=== PATIENT | male | born 1950 | race Caucasian/White ===

== ENCOUNTER 2017-04-12 10:38 | Emergency (ER) | payer OTHER ==
[~2017-04-12] VITALS: Ht 162.6 cm; Wt 67.8 kg
[~2017-04-12 10:38] MED LIST: ASPIRIN325 MG PO; ATORVASTATIN CA20 MG PO; LISINOPRIL20 MG PO; METFORMIN HCL1000 MG PO; PLAVIX75 MG PO; VITAMIN D35000 UNI1 PO
[2017-04-12 12:40] LABS: HEMATOCRIT 44.5 % (38.0-50.0); MCHC 35.3 G/DL (30.0-36.0); MCV 85.1 FL (86-99); MEAN PLAT.VOLUME 10.4 uM^3 (9.0-12.4); PLATELET COUNT 250 K/uL (156-360); RBC DIS.WIDTH-SD 37.2 % (39-53); RED BLOOD COUNT 5.23 M/uL (4.00-5.50); WHITE BLOOD COUNT 8.7 K/uL (4.1-10.2)
[2017-04-12 13:02] LABS: CHLORIDE 98 mEq/L (99-109); POTASSIUM 3.8 mEq/L (3.7-5.4); SODIUM 133 mEq/L (136-147)
[2017-04-12 13:04] LABS: GLUCOSE 231 mg/dL (70-99)
[2017-04-12 13:05] LABS: ANION GAP 11 MEQ/L (2-14)
[2017-04-12 13:06] LABS: TOTAL BILIRUBIN 0.7 mg/dL (0.0-1.0)
[2017-04-12 13:08] LABS: ALKALINE PHOSPHATASE 60 IU/L (3-129); GFR ESTIMATE (CALCULATED) > 59 mL/min/
[2017-04-12 13:09] LABS: UREA NITROGEN (BUN) 23 mg/dL (9-23)
[2017-04-12 13:11] LABS: LIPASE 28 U/L (1.0-51.0)
[2017-04-12 15:44] VITALS: BP 116/79
== END 2017-04-12 15:45 | disposition home or self-care (01) ==
LOC: EME 10:38
DX: K59.00 Constipation, unspecified (principal); I10 Essential (primary) hypertension; E78.5 Hyperlipidemia, unspecified; E11.9 Type 2 diabetes mellitus without complications; Z79.82 Long term (current) use of aspirin; Z79.02 Long term (current) use of antithrombotics/antiplatelets
CPT/HCPCS: 74020; 74177; 80053; 81003; 83605; 83690; 85027; 99281; 99284; J7040

== ENCOUNTER 2017-04-24 11:41 | Inpatient (IN) | payer OTHER ==
[~2017-04-24] VITALS: Ht 165.1 cm; Wt 63.2 kg
[~2017-04-24 11:41] MED LIST changes: -ASPIRIN325 MG PO; -ATORVASTATIN CA20 MG PO; +ATORVASTATIN CA40 MG PO; +ERGOCALCIF50000 UNIT PO; +LISINOPRIL-HCT1 EAC3 PO; -LISINOPRIL20 MG PO; +LO-DOSE ASPIRIN81 M1 PO; -VITAMIN D35000 UNI1 PO
[2017-04-24 13:32] LABS: HEMATOCRIT 48.3 % (38.0-50.0); MCH 29.9 PG (29.0-34.0); MCHC 34.8 G/DL (30.0-36.0); MCV 86.1 FL (86-99); MEAN PLAT.VOLUME 10.3 uM^3 (9.0-12.4); PLATELET COUNT 281 K/uL (156-360); RBC DIS.WIDTH-SD 37.8 % (39-53); RED BLOOD COUNT 5.61 M/uL (4.00-5.50); WHITE BLOOD COUNT 8.2 K/uL (4.1-10.2)
[2017-04-24 13:42] LABS: CHLORIDE 91 mEq/L (99-109); POTASSIUM 3.7 mEq/L (3.7-5.4); SODIUM 134 mEq/L (136-147)
[2017-04-24 13:43] LABS: GLUCOSE 236 mg/dL (70-99)
[2017-04-24 13:45] LABS: ANION GAP 13 MEQ/L (2-14)
[2017-04-24 13:47] LABS: GFR ESTIMATE (CALCULATED) > 59 mL/min/
[2017-04-24 13:48] LABS: UREA NITROGEN (BUN) 22 mg/dL (9-23)
[2017-04-24] MEDS ORDERED: GLIPIZIDE5 MG PO (14:07)
[2017-04-24] MEDS ORDERED: ONGLYZA5 MG PO (14:08)
[2017-04-24] MEDS ORDERED: SIMETHICONE80 MG PO (14:09)
[2017-04-24] MEDS ORDERED: ACIDOPHILUS1 EAC1 PO (14:09)
[2017-04-24] MEDS ORDERED: COLACE100 MG PO (14:10)
[2017-04-24] MEDS ORDERED: MAGNESIUM CITR296 M1 PO (14:10)
[2017-04-24] MEDS ORDERED: PSYLLIUM SEED480 GM PO (14:11)
[2017-04-24 14:12] LABS: TROP-I INTERPRETATION NEGATIVE; TROPONIN-I < 0.01 ng/mL (0.0-0.30)
[2017-04-24 18:32] VITALS: BP 152/76
[2017-04-24 20:00] VITALS: BP 122/67
[2017-04-24 23:15] LABS: POINT-OF-CARE METER ID UU14188625
[2017-04-24 23:46] VITALS: BP 139/84
[2017-04-25 04:05] VITALS: BP 140/70
[2017-04-25 06:18] LABS: ANION GAP 5 MEQ/L (2-14); CHLORIDE 98 MEQ/L (99-109); GFR ESTIMATE (CALCULATED) > 59 mL/min/; GLUCOSE 298 mg/dL (70-99); POTASSIUM 3.9 MEQ/L (3.7-5.4); SAMPLE HEMOLYSIS CHECK 0; SAMPLE ICTERIC CHECK 0; SAMPLE LIPEMIA CHECK 0; SODIUM 133 MEQ/L (136-147); UREA NITROGEN (BUN) 23 mg/dL (9-23)
[2017-04-25 07:25] VITALS: BP 155/74
[2017-04-25 08:20] LABS: BASOPHIL COUNT 0.1 K/uL (0-0.1); EOSINOPHIL (%) 0.4 % (0-5); HEMATOCRIT 41.9 % (38.0-50.0); IMMATURE GRANULOCYTE (%) 0.4 % (0.0-0.7); LYMPHOCYTE COUNT 0.7 K/uL (1.0-2.8); MCH 29.8 PG (29.0-34.0); MCHC 34.4 G/DL (30.0-36.0); MCV 86.6 FL (86-99); MEAN PLAT.VOLUME 10.5 uM^3 (9.0-12.4); MONOCYTE COUNT 0.5 K/uL (0-0.8); NEUTROPHIL (%) 84.1 % (45-76); PLATELET COUNT 264 K/uL (156-360); RBC DIS.WIDTH-CV 12.1 % (11.8-14.6); RBC DIS.WIDTH-SD 38.8 % (39-53); RED BLOOD COUNT 4.84 M/uL (4.00-5.50); WHITE BLOOD COUNT 8.3 K/uL (4.1-10.2)
[2017-04-25 08:24] LABS: ALKALINE PHOSPHATASE 57 IU/L (3-129); DIRECT BILIRUBIN 0.1 mg/dL (0.0-0.3); TOTAL BILIRUBIN 0.5 MG/DL (0.0-1.0)
[2017-04-25 10:04] LABS: Estimated Average Glucose 226 mg/dL (70-123); HEMOGLOBIN A1c (GLYCOHEMOGLOB) 9.5 % HGB (Below 5.7)
[2017-04-25 10:15] LABS: FASTING STATUS NONFASTING
[2017-04-25 10:42] LABS: HDL CHOLESTEROL 45 MG/DL (Desirable>=40); LDL CHOLESTEROL 77 mg/dL (Desirable<100); NON-HDL CHOLESTEROL 99 mg/dL (Desirable<160); TOTAL CHOLESTEROL 144 mg/dL (Desirable<200); TRIGLYCERIDES 110 MG/DL (Normal: <150)
[2017-04-25 11:02] VITALS: BP 171/84
[2017-04-25 12:13] LABS: POINT-OF-CARE METER ID UU14174225
[2017-04-25 15:24] VITALS: BP 162/88
[2017-04-25 16:25] LABS: POINT-OF-CARE METER ID UU14174225
[2017-04-25 20:00] VITALS: BP 143/90
[2017-04-26] VITALS (7 sets, daily range): BP systolic 123–180; BP diastolic 80–98
[2017-04-26 16:14] LABS: POINT-OF-CARE METER ID UU13113717
[2017-04-26 16:57] LABS: ADD MIUA? NO; BILIRUBIN NEGATIVE; BLOOD NEGATIVE; COLOR STRAW ((YELLOW)); GLUCOSE (STRIP) >=500; KETONES NEGATIVE; LEUKOCYTES NEGATIVE; NITRITE NEGATIVE; PROTEIN (STRIP) NEGATIVE; SPECIFIC GRAVITY 1.028 (1.000-1.030); UCUL ADDED? NO; UROBILINOGEN 0.2 MG/DL (0.2-1.0)
[2017-04-27] VITALS: BP 181/97
[2017-04-27 04:00] VITALS: BP 150/79
[2017-04-27 06:19] LABS: HEMATOCRIT 41.6 % (38.0-50.0); MCH 30.9 PG (29.0-34.0); MCHC 36.3 G/DL (30.0-36.0); MCV 85.1 FL (86-99); PLATELET COUNT 244 K/uL (156-360); RBC DIS.WIDTH-SD 36.7 % (39-53); RED BLOOD COUNT 4.89 M/uL (4.00-5.50); WHITE BLOOD COUNT 7.7 K/uL (4.1-10.2)
[2017-04-27 07:05] LABS: ANION GAP 11 MEQ/L (2-14); CHLORIDE 99 MEQ/L (99-109); GFR ESTIMATE (CALCULATED) > 59 mL/min/; GLUCOSE 215 mg/dL (70-99); SAMPLE HEMOLYSIS CHECK 0; SAMPLE ICTERIC CHECK 0; SAMPLE LIPEMIA CHECK 0; SODIUM 135 MEQ/L (136-147); UREA NITROGEN (BUN) 21 mg/dL (9-23)
[2017-04-27 07:29] VITALS: BP 166/92
[2017-04-27 11:04] LABS: TROP-I INTERPRETATION NEGATIVE; TROPONIN-I 0.02 ng/mL (0.0-0.30)
[2017-04-27] MEDS ORDERED: LOPRESSOR25 MG PO (11:21)
[2017-04-27] MEDS ORDERED: LISINOPRIL10 MG PO (11:24)
[2017-04-27 11:45] LABS: LYME DISEASE SEROLOGY SCREEN POSITIVE (NEGATIVE)
[2017-04-27 16:08] VITALS: BP 157/87
[2017-04-27 19:49] VITALS: BP 131/83
[2017-04-27 23:53] VITALS: BP 159/76
[2017-04-28 03:47] VITALS: BP 170/94
[2017-04-28 07:04] LABS: HEMATOCRIT 42.3 % (38.0-50.0); MCH 31.1 PG (29.0-34.0); MCHC 35.9 G/DL (30.0-36.0); MCV 86.5 FL (86-99); PLATELET COUNT 270 K/uL (156-360); RBC DIS.WIDTH-CV 12.4 % (11.8-14.6); RBC DIS.WIDTH-SD 39.5 % (39-53); RED BLOOD COUNT 4.89 M/uL (4.00-5.50)
[2017-04-28 07:36] LABS: ANION GAP 9 MEQ/L (2-14); CHLORIDE 98 MEQ/L (99-109); GFR ESTIMATE (CALCULATED) > 59 mL/min/; GLUCOSE 244 mg/dL (70-99); POTASSIUM 4.6 MEQ/L (3.7-5.4); SAMPLE HEMOLYSIS CHECK 0; SAMPLE ICTERIC CHECK 0; SAMPLE LIPEMIA CHECK 0; SODIUM 135 MEQ/L (136-147); UREA NITROGEN (BUN) 26 mg/dL (9-23)
[2017-04-28 07:39] VITALS: BP 137/88
[2017-04-28] MEDS ORDERED: DOXYCYCLINE HY100 M3 PO (09:21)
[2017-04-28 11:02] VITALS: BP 122/73
== END 2017-04-28 13:28 | disposition home health service (06) | DRG 868 ==
LOC: EME 11:41 → 5SOUTH 15:13 → EDOF 15:13 → ENRESERV 15:19 → 5SOUTH 18:04
PROVIDERS: Internal Medicine; Physician Assistant Medical
DX: A69.20 Lyme disease, unspecified (principal); M75.41 Impingement syndrome of right shoulder; M19.011 Primary osteoarthritis, right shoulder; E87.1 Hypo-osmolality and hyponatremia; E46 Unspecified protein-calorie malnutrition; I65.21 Occlusion and stenosis of right carotid artery; E78.5 Hyperlipidemia, unspecified; I10 Essential (primary) hypertension; E11.65 Type 2 diabetes mellitus with hyperglycemia; F43.10 Post-traumatic stress disorder, unspecified; K59.00 Constipation, unspecified; R00.0 Tachycardia, unspecified; Z79.4 Long term (current) use of insulin; Z79.02 Long term (current) use of antithrombotics/antiplatelets; Z79.82 Long term (current) use of aspirin
CPT/HCPCS: 70450; 70551; 71260; 72141; 73030; 73221; 74020; 80048; 80061; 80076; 81003; 82272; 82607; 82948; 83036; 84443; 84484; 85025; 85027; 86617 90; 86618; 92610 GN; 93005; 93306; 93880; 99281; 99285; G0103; J0360; J1650; J1815; J7030; J7042